=== PATIENT | female | born 1975 | race Caucasian/White ===

== ENCOUNTER 2017-07-07 09:11 | Emergency (ER) | payer MEDICAID ==
[~2017-07-07] VITALS: Ht 175.3 cm; Wt 135.0 kg
[2017-07-07 09:23] VITALS: BP 138/80; PULSE 93; RESP 17; TEMP 98.1; O2SAT 99
[2017-07-07] MEDS ORDERED: NAPR500 PO (10:50)
--- NOTE | 2017-07-07 10:50 | PD ---
HPI Chief Complaint: Pain: Acute or Chronic Time Seen by Provider: 10:39 Travel History International Travel<30 days: No Contact w/Intl Traveler<30days: No Traveled to known affect area: No History of Present Illness HPI 41-year-old female presents to the ED for evaluation of 3 month history of intermittent right knee pain. Described as throbbing, occasionally sharp, 3/10 minimally, 6/ 10 maximally. Worsened by ambulation and range of motion. Patient can identify no acute injury to the knee. She endorses occasionally feeling as if the knee will give way. She's been treating at home by "staying off of it." She does not have an orthopedist. PFSH Past Medical History ?: Not LMP: IUD Social History Tobacco Use: No Allergies-Medications (Allergen,Severity, Reaction): Coded Allergies: No Known Allergies (Unverified , 07/07/17) Reported Meds & Prescriptions Reported Meds & Active Scripts Active Naprosyn (Naproxen) 500 Mg Tab 500 Mg PO BID 5 Days Review of Systems Except as stated in HPI: all other systems reviewed are Neg Physical Exam Narrative GENERAL: Well-nourished, well-developed obese white female in no acute distress. SKIN: Focused skin assessment warm/dry. HEAD: Normocephalic. EYES: No scleral icterus. No injection or drainage. NECK: Supple, trachea midline. No JVD or lymphadenopathy. CARDIOVASCULAR: Regular rate and rhythm without murmurs, gallops, or rubs. RESPIRATORY: Breath sounds equal bilaterally. No accessory muscle use. GASTROINTESTINAL: Abdomen soft, non-tender, nondistended. MUSCULOSKELETAL: No cyanosis, or edema. FOCUSED RIGHT LOWER EXTREMITY EXAM: 2+ DP pulse. Tender to palpation of the anterior knee. No patellar balloting. No tenderness to palpation of the joint lines. No popliteal tenderness. Negative varus/valgus stress testing. Negative anterior drawer testing. Neurovascularly intact to light touch distally. BACK: Nontender without obvious deformity. No CVA tenderness. Data Data Last Documented VS Vital Signs Date Time Temp Pulse Resp B/P (MAP) Pulse Ox O2 Delivery O2 Flow Rate FiO2 07/07/17 09:23 98.1 93 17 138/80 (99) 99 Orders Orders Knee, Complete (4vws) (07/07/17 10:16) Ice/Cold Pack (07/07/17 10:16) MDM Medical Decision Making Medical Screen Exam Complete: Yes Emergency Medical Condition: Yes Differential Diagnosis Osteoarthritis versus internal derangement versus meniscal injury versus other Narrative Course 41-year-old female presents to the ED for evaluation of 3 month history of intermittent right knee pain. Worsened by ambulation and range of motion. Patient can identify no acute injury to the knee. She endorses occasionally feeling as if the knee will give way. She's been treating at home by "staying off of it." She does not have an orthopedist. Vitals reviewed. On exam this is an obese female in no acute distress. She does have tenderness to palpation on the anterior aspect of the knee but the knee exam is otherwise unremarkable. X-ray reveals mild arthritic changes by my read. The patient is prescribed a short course of Naprosyn, instructed to use RICE therapy, follow with the orthopedist. She is stable and discharged home. Diagnosis Primary Impression: Right knee pain Qualified Codes: M25.561 - Pain in right knee; G89.29 - Other chronic pain Referrals: Orthopedist Additional Instructions: Rest, ice, elevate the extremity. Apply ice no longer than 10-15 minutes per hour a few times a day. Naprosyn every 12 hours 5 days as prescribed to reduce pain and inflammation. Return to normal, gentle activity as tolerated. No running, jumping activities for the next few weeks. Follow up with orthopedist or your primary care provider. Return to the ED for any urgent or emergent medical condition. Med/Other Pt SpecificInfo: Prescription(s) given Scripts Naproxen (Naprosyn) 500 Mg Tab 500 MG PO BID for 5 Days, #10 TAB 0 Refills Prov: Mateo Zamudio MD 07/07/17 Disposition: 01 DISCHARGE HOME Condition: Stable Bing Gilmore Jul 07, 2017 10:50
--- NOTE | 2017-07-07 11:14 | RADRPT ---
EXAM DATE/TIME: 07/07/2017 10:34 [facility] COMPARISON: No previous studies available for comparison. INDICATIONS : Patient states pain at the joint, no known trauma to area. MEDICAL HISTORY : None. SURGICAL HISTORY : None. ENCOUNTER: Initial ACUITY: 2 months PAIN SCORE: 5/10 LOCATION: Right Knee FINDINGS: Small joint effusion is evident. Loss of articular cartilage medial compartment. Fracture not appre ciated. CONCLUSION: Small joint effusion with degenerative changes medial compartment Malcolm Seymour MD FACR on July 07, 2017 at 11:11 Board Certified Radiologist. This report was verified electronically.
== END 2017-07-07 11:02 | disposition home or self-care (01) ==
LOC: NEPK 09:11
DX: M25.561 Pain in right knee (principal)
CPT/HCPCS: 73564; 99283